=== PATIENT | male | born 1975 | race Hispanic/Latino ===

== ENCOUNTER 2024-06-27 19:35 | Emergency (ER) | payer OTHER ==
--- OUTSIDE RECORDS SUMMARY | 2024-06-27 19:39 | XMS REPORT | Continuity of Care Document ---
Author Name Unknown Address [address] [facility] [address] [place] [address] [facility] Address [address] [facility] [place] [address] Care Team Providers Care Placer Miner Name Role Phone JONATHON MARIA Attending Clinician Unavailable JAYESH DORSEY Attending Clinician Unavailable Lab, Adc Fam Pob I Attending Clinician Unavailab Jayesh Castro Attending Clinician [phone] Doctor Unassigned, Conception Attending Clinician U navailable Payers Payer Name Policy Type Policy Number Effective Date Expirati on Date Source [employer] PPO II [id number] 2020 00:00:00 [facility] - OUT OF STATE [id number] 2018 00:00:00 Allergies, Adverse Reactions, Alerts Allergy Name Allergy Type Status Severity Reaction(s) Onset Date Inactive Date Treating Clinician Comments Source NO KNOWN ALLERGIE S Drug Class Active [facility] Social History Social Habit Start Date Stop Date Quantity Comments Source Sex Assigned At [facility] Smoking Status Start Date Stop Date Source Unknown if ever smoked [facility] Encounters Start Date/Time End Date/Time Encounter Type Admission Type Attending Clinicians Care Facility Care Department Encounter ID Source 2020-05-23 07:50:00 2020-05-23 07:50:00 Outpatient JONATHON MARTINEZ [facility] [id number] [facility] 2020-05-02 07:50:00 2020-05-02 07:50:00 Outpatient JONATHON MARTINEZ [facility] [id number] [facility] 2019-09-28 17:20:00 2019-09-28 17:20:00 Outpatient R ANENE, [facility] [id number] [facility] 2019-09-28 11:21:43 2019-09-28 11:41:43 Laboratory Only Lab, Adc Fam Manju Dorsey [facility] [address] [id number] [facility] 2019-09-28 00:00:00 2019-09-28 00:00:00 Letter (Out) Doctor Unassigned, Conception [facility] [id number] [facility]
[2024-06-27] MEDS ORDERED: ONDANSETRON 4 MG/2 ML VIAL ONE (22:02)
[2024-06-27] MEDS ORDERED: NA CHLORIDE 0.9% 1,000 ML ONE (22:03)
[2024-06-27] MEDS ORDERED: MORPHINE 4 MG/ML SYR ONE (22:03)
[2024-06-27 22:04] LABS: Absolute Basophils 0.1 K/uL (0-0.5); Absolute Eosinophils 0.1 K/uL (0-0.5); Absolute Lymphocytes (CBC) 1.4 K/uL (0.7-4.9); Absolute Monocytes 0.9 K/uL (0.1-1.3); Absolute Neutrophil 9.1 K/uL (1.8-8.0); Basophils % 0.5 % (0-1.3); Eosinophils % 0.9 % (0-4.4); Hematocrit 43.6 % (39.6-49.0); Hemoglobin 14.7 g/dL (13.6-17.9); Lymphocytes % 12.3 % (15.3-44.8); MCH 30.8 pg (27.0-35.0); MCHC 33.8 g/dL (32.0-36.0); MCV 91.2 fL (80-100); MPV 9.9 fL (7.6-11.3); Neutrophils % 78.3 % (41.7-73.7); Platelets 192 thou/uL (152-406); RBC Red Blood Cell Count 4.78 M/uL (4.33-5.43); Red Cell Distribution Width 12.9 % (12.1-15.2)
[2024-06-27 22:09] LABS: Specific Gravity 1.017 (1.005-1.030); Sqamous Epithelial <5 /HPF (None Seen); Urine Bacteria None Seen /HPF (<20); Urine Bilirubin NEGATIVE (Negative); Urine Blood 2+ (Negative); Urine Clarity Clear (Clear); Urine Color Light-Yellow (Yellow); Urine Crystals Unidentified Few /HPF (None Seen); Urine Culture Reflex Order NOT NEEDED; Urine Glucose NEGATIVE (Negative); Urine Ketones NEGATIVE (Negative); Urine Microscopic Reflex YN ORDER UMIC; Urine Mucus Slight /HPF (None Seen); Urine Nitrite NEGATIVE (Negative); Urine Protein NEGATIVE (Negative); Urine Urobilinogen Normal (Normal); Urine WBC <5 /HPF (<5); Urine pH 5.5 (5.0-7.0)
[2024-06-27 22:21] LABS: Albumin 3.9 g/dL (3.4-5.0); Albumin/Globulin Ratio 1.1 (1.1-1.8); Anion Gap 6.9 mEq/L (5.0-15.0); Bilirubin Total 0.6 mg/dL (0.2-1.0); Globulin 3.4 g/dL (2.3-3.5); Potassium 3.9 mEq/L (3.5-5.1); Protein, Total 7.3 g/dL (6.4-8.2)
--- NOTE | 2024-06-27 23:45 | RAD REPORT ---
EXAM: CT Abdomen and Pelvis Without and With Intravenous Contrast CLINICAL HISTORY: The patient is 49 years old and is Male; right flank pain TECHNIQUE: Axial computed tomography images of the abdomen and pelvis without and with intravenous contrast. Sagittal and coronal reformatted images were created and reviewed. This CT exam was performed using one or more of the following dose reduction techniques: automated exposure control, adjustmen t of the mA and/or kV according to patient size, and/or use of iterative reconstruction technique. COMPARISON: No relevant prior studies available. FINDINGS: LUNG BASES: Unremarkable. No mass. No consolidation. ABDOMEN: LIVER: Unremarkable. No mass. GALLBLADDER AND BILE DUCTS: The gallbladder is contracted. No calcified gallstones are seen. PANCREAS: Unremarkable. No mass. No ductal dilation. SPLEEN: Unremarkable. ADRENALS: Unremarkable. No mass. KIDNEYS AND URETERS: Edematous right kidney with mild right hydronephrosis and proximal hydrouret er is present secondary to a 0.5 cm proximal right ureteral calculus. Right perinephric stranding is noted. The left kidney is normal without hydronephrosis or hydroureter. STOMACH AND BOWEL: The stomach is distended with food contents. The small bowel is normal in albert tata. A moderate amount stool is present throughout the colon. There is no mucosal thickening or evidence of obstruction. PELVIS: APPENDIX: The appendix is normal in caliber without surrounding inflammation. BLADDER: The bladder is well distended. No stones. REPRODUCTIVE: Unremarkable as visualized. ABDOMEN and PELVIS: INTRAPERITONEAL SPACE: Unremarkable. No free air. No significant fluid collection. BONES/JOINTS: No acute fracture. SOFT TISSUES: The soft tissues are normal. VASCULATURE: Unremarkable. No abdominal aortic aneurysm. LYMPH NODES: Unremarkable. No enlarged lymph nodes. IMPRESSION: Mild right hydroureteronephrosis with edematous right kidney secondary to a proximal right ureteral calculus. Electronically signed by: Kylee Bartholomew MD 06/27/2024 11:33 PM CDT RP Due to temporary technical issues with the [employer] reporting system, reports are being vane d by the in-house radiologist without review as a courtesy to ensure prompt reporting the interpreting radiologist is fully responsible for the content of the report. Transcribed Date/Time: 06/27/2024 11:44 PM
[2024-06-27] MEDS ORDERED: KETOROLAC 30 MG/ML INJ ONE (23:52)
[2024-06-27] MEDS ORDERED: MAGNESIUM SULFATE 1 gm IVPB 1 GM/100 ML BAG IV ONE (23:52)
[2024-06-27] MEDS ORDERED: TAMSULOSIN 0.4 MG SR CAP ONE (23:52)
--- NOTE | 2024-06-28 00:36 | EDPHYS ---
Physician Documentation [facility] Name: Santosh Bowman Age: 49 yrs Sex: Male : 1975 Arrival Date: 06/27/2024 Time: 19:35 Bed 16 Private MD: ED Physician Mina Vivas HPI: 06/27 20:00 This 49 yrs old Male presents to ER via Ambulatory with complaints of Flank cp Pain, Low Back Pain, Chills. 20:00 The patient complains of pain in the right flank. The pain radiates to the right mid cp back and right groin. Onset: The symptoms/episode began/occurred today. 20:00 Associated signs and symptoms: Pertinent positives: nausea, Pertinent negatives: cp diarrhea, dysuria, fever, hematuria, pain radiating to the lower extremities, vomiting. Severity of pain: in the emergency department the pain is unchanged despite home interventions. Significant other translates and reports pain started suddenly today. Historical: - Allergies: 19:59 No Known Allergies; br2 - Immunization history:: Adult Immunizations up to date. - Infectious Disease History:: Denies. - Social history:: Smoking status: Patient denies any tobacco usage or history of. Patient uses alcohol, but reports only rare drinking. Patient/guardian denies using street drugs. ROS: 20:05 Constitutional: Negative for body aches, chills, fever, poor PO intake, cp 20:05 Eyes: Negative for injury, pain, redness, and discharge, cp 20:05 ENT: Negative for drainage from ear(s), ear pain, sore throat, difficulty swallowing, difficulty handling secretions, 20:05 Cardiovascular: Negative for chest pain, edema, palpitations, 20:05 Respiratory: Negative for cough, shortness of breath, wheezing, 20:05 Abdomen/GI: Positive for abdominal pain, nausea, Negative for vomiting, diarrhea, constipation, 20:05 Back: Positive for flank pain, on the right, right mid back pain, 20:05 : Positive for radiating pain to right groin and right testicle, 20:05 Neuro: Negative for altered mental status, dizziness, headache, weakness, 20:05 All other systems are negative, Exam: 20:10 Constitutional: The patient appears in no acute distress, alert, awake, cp non-diaphoretic, non-toxic, well developed, well nourished, uncomfortable, 20:10 Head/Face: Normocephalic, atraumatic. cp 20:10 Eyes: Periorbital structures: appear normal, Conjunctiva: normal, no exudate, no injection, Sclera: no appreciated abnormality, Lids and lashes: appear normal, bilaterally, 20:10 ENT: External ear(s): are unremarkable, Nose: is normal, Mouth: Lips: moist, Oral mucosa: moist, Posterior pharynx: Airway: no evidence of obstruction, patent, 20:10 Chest/axilla: Inspection: normal, 20:10 Cardiovascular: Rate: normal, Rhythm: regular, Edema: is not appreciated, JVD: is not appreciated, 20:10 Respiratory: the patient does not display signs of respiratory distress, Respirations: normal, no use of accessory muscles, no retractions, labored breathing, is not present, Breath sounds: are clear throughout, no decreased breath sounds, 20:10 Abdomen/GI: Inspection: abdomen appears normal, Bowel sounds: active, all quadrants, Palpation: soft, in all quadrants, mild abdominal tenderness, in the anterior aspect of right lateral abdomen and posterior aspect of right lateral abdomen, moderate abdominal tenderness, in the right lower quadrant, rebound tenderness, is not appreciated, involuntary guarding, is not appreciated, 20:10 Back: pain, that is moderate, of the right mid back, ROM is normal, 20:10 Neuro: Orientation: to person, place \T\ time. Mentation: is normal, Motor: moves all fours, strength is normal, Sensation: is normal, Gait: is steady, at a normal pace, without difficulty, Vital Signs: 19:53 BP 130 / 69; Pulse 65; Resp 18; Temp 97.3; Pulse Ox 100% ; Weight 86.18 kg; Height 5 br2 ft. 9 in. ; Pain 10/10; 23:32 BP 141 / 76; Pulse 82; Resp 18; Pulse Ox 100% ; cp4 06/28 01:10 BP 122 / 74; Pulse 54; Resp 18; Pulse Ox 100% ; cp4 06/27 19:53 Body Mass Index 28.06 (86.18 kg, 175.26 cm) br2 06/27 19:53 Pain Scale: Adult br2 MDM: 00:35 Data reviewed: vital signs, nurses notes, lab test result(s), radiologic studies, CT cp scan, and as a result, I will discharge patient. 00:35 Differential diagnosis: nephrolithiasis, pyelonephritis, UTI, testicular torsion, cp ruptured AAA, dissecting AAA, colitis, appendicitis. Consideration of Admission/Observation Escalation of care including admission/observation considered. I considered the following discharge prescriptions or medication management in the emergency department Medications were administered in the Emergency Department. See MAR. Counseling: I had a detailed discussion with the patient and/or guardian regarding the historical points, exam findings, and any diagnostic results supporting the discharge/admit diagnosis, lab results, radiology results, the need for outpatient follow up, a urologist, to return to the emergency department if symptoms worsen or persist or if there are any questions or concerns that arise at home. Response to treatment: the patient's symptoms have markedly improved after treatment, pain and nausea markedly improved, and as a result, I will discharge patient. 00:36 Medical Screening Exam initiated cp 06/27 19:57 Order name: CBC with Diff; Complete Time: 22:37 cp 06/27 22:37 Interpretation: Normal except: WBC 11.60; CHIVO% 78.3; LYM% 12.3; NEUT A 9.1. cp 06/27 19:57 Order name: CMP; Complete Time: 22:37 cp 06/27 22:37 Interpretation: Normal except: GLUC 126; BUN 21; GFR 85. cp 06/27 19:57 Order name: Lipase; Complete Time: 22:37 cp 06/27 19:57 Order name: Urinalysis w/ reflexes; Complete Time: 22:37 cp 06/27 19:57 Order name: CT Abd/Pelvis- W/WO Contrast cp 06/27 19:57 Order name: IV Saline Lock; Complete Time: 21:55 cp 06/27 19:57 Order name: Labs collected and sent; Complete Time: 21:55 cp 06/28 00:13 Order name: Urine Strainer; Complete Time: 00:16 cp Administered Medications: 06/27 22:06 Drug: NS 0.9% IV 1000 ml IV at 1 bolus Per protocol; to be given as a bolus over 60 cp4 minutes Route: IV; Rate: 1 bolus; Site: left antecubital; 23:58 Follow up: Response: No adverse reaction; IV Status: Completed infusion cp4 23:50 Not Given (Patient Refused): ondansetron 4 mg IVP once; over 2 minutes cp4 23:51 Not Given (Patient Refused): morphineor iv 4 mg IVP once over 4 mins cp4 23:58 Drug: Magnesium Sulfate IVPB 1 grams IVPB once over 1 hrs Route: IVPB; Infused Over: 1 cp4 hrs; Site: left antecubital; 06/28 01:09 Follow up: Response: No adverse reaction; IV Status: Completed infusion cp4 06/27 23:58 Drug: Flomax PO 0.4 mg PO once Route: PO; cp4 06/28 00:42 Follow up: Response: No adverse reaction cp4 06/27 23:58 Drug: Ketorolac IVP 15 mg IVP once Route: IVP; Site: left antecubital; cp4 06/28 00:42 Follow up: Response: No adverse reaction cp4 01:09 Drug: Hydrocodone-Acetaminophen PO (7.5 mg-325 mg) 1 tabs PO once; RASS on ADMIN: cp4 Combtv4, Very Agttd3, Agttd2, Rstlss1, AlertClm0, Drwsy-1, Lt Sdtn-2, Mod Sdtn-3, Dp Sdtn-4, UnArsble-5 Route: PO; 01:09 Follow up: Response: No adverse reaction cp4 Disposition: 22:28 Co-signature as Attending Physician, Mina Vivas MD I agree with the assessment sp4 and plan of care. I reviewed the patient's care provided by the Advanced Practice Provider and agree with the diagnosis and treatment plan. Disposition Summary: 06/28/24 00:36 Discharge Ordered Notes: Location: Home cp Problem: new cp Symptoms: have improved cp Condition: Stable cp Diagnosis - Calculus of ureter - right cp Followup: cp - With: Chaz Haq MD - When: 2 - 3 days - Reason: Recheck today's complaints Discharge Instructions: - Discharge Summary Sheet cp - Kidney Stones cp - Renal Colic cp - Dietary Guidelines to Help Prevent Kidney Stones cp Forms: - Medication Reconciliation Form cp - Antibiotic Education cp - Prescription Opioid Use cp - Patient Portal Instructions cp - Leadership Thank You Letter cp Prescriptions: - Flomax 0.4 mg Oral capsule - take 1 capsule ORAL route daily As needed; 7 capsule; Refills: 0, Product cp Selection Permitted - Ibuprofen 800 mg Oral Tablet - take 1 tablet ORAL route every 8 hours As needed take with food; 30 tablet; cp Refills: 0, Product Selection Permitted - Zofran 4 mg Oral Tablet - take 1 tablet ORAL route every 12 hours As needed; 20 tablet; Refills: 0, cp Product Selection Permitted - Tylenol-Codeine #3 300mg-30mg Oral tablet - take 1 tablet ORAL route every 4 hours As needed; 16 tablet; Refills: 0, cp Product Selection Permitted Signatures: Dispatcher [employer] EDMS Brent Jorgensen, LAMONT PA Mina Dodson MD MD sp4 Kathleen Fox cp4 Kassidy De Luna RN RN br2
--- NOTE | 2024-06-28 00:36 | ER ---
Nurse's Notes [facility] Name: Santosh Bowman Age: 49 yrs Sex: Male : 1975 Arrival Date: 06/27/2024 Time: 19:35 Bed 16 Private MD: Diagnosis: Calculus of ureter-right Presentation: 06/27 19:53 Chief complaint: Patient states: RIGHT FLANK PAIN AND RADIATES TO RLQ AND RIGHT br2 TESTICAL , DENIES HEMATURIA OR KIDNEY STONES... Coronavirus screen: Client denies travel out of the [place] in the last 14 days. Ebola Screen: Patient denies exposure to infectious person. Initial Sepsis Screen: Does the patient meet any 2 criteria? No. Patient's initial sepsis screen is negative. Does the patient have a suspected source of infection? No. Patient's initial sepsis screen is negative. Risk Assessment: Do you want to hurt yourself or someone else? Patient reports no desire to harm self or others. Onset of symptoms was June 27, 2024 at 14:00. 19:53 Method Of Arrival: Ambulatory br2 19:53 Acuity: TREMAINE 3 br2 Triage Assessment: 19:59 General: Appears in no apparent distress. comfortable, Behavior is calm, cooperative. br2 Historical: - Allergies: 19:59 No Known Allergies; br2 - Immunization history:: Adult Immunizations up to date. - Infectious Disease History:: Denies. - Social history:: Smoking status: Patient denies any tobacco usage or history of. Patient uses alcohol, but reports only rare drinking. Patient/guardian denies using street drugs. Screenin:58 [facility] ED Fall Risk Assessment (Adult) History of falling in the last 3 months, cp4 including since admission No falls in past 3 months (0 pts) Confusion or Disorientation No (0 pts) Intoxicated or Sedated No (0 pts) Impaired Gait No (0 pts) Mobility Assist Device Used No (0 pt) Altered Elimination No (0 pt) Score/Fall Risk Level 0 - 2 = Low Risk Oriented to surroundings, Maintained a safe environment, Assessed \T\ reinforced patient's understanding of fall precautions, Hourly rounding (assess needs \T\ fall precautionary measures) done. Abuse screen: Denies threats or abuse. Denies injuries from another. Nutritional screening: No deficits noted. Tuberculosis screening: No symptoms or risk factors identified. Assessment: 21:58 General: Appears in no apparent distress. uncomfortable, Behavior is calm, cooperative, cp4 appropriate for age. Pain: Complains of pain in right flank Pain radiates to pelvis Pain currently is 10 out of 10 on a pain scale. Neuro: Level of Consciousness is awake, alert, obeys commands, Oriented to person, place, time, situation. Cardiovascular: Rhythm is regular. Cardiovascular: Patient's skin is warm and dry. Respiratory: Airway is patent Respiratory effort is even, unlabored. GI: No signs and/or symptoms were reported involving the gastrointestinal system. : Reports pain in right flank(s). EENT: No signs and/or symptoms were reported regarding the EENT system. Derm: No signs and/or symptoms reported regarding the dermatologic system. Musculoskeletal: No signs and/or symptoms reported regarding the musculoskeletal system. 06/28 00:47 Reassessment: Dispo pending IV Magnesium infusion. cp4 Vital Signs: 06/27 19:53 BP 130 / 69; Pulse 65; Resp 18; Temp 97.3; Pulse Ox 100% ; Weight 86.18 kg; Height 5 br2 ft. 9 in. ; Pain 10/10; 23:32 BP 141 / 76; Pulse 82; Resp 18; Pulse Ox 100% ; cp4 06/28 01:10 BP 122 / 74; Pulse 54; Resp 18; Pulse Ox 100% ; cp4 06/27 19:53 Body Mass Index 28.06 (86.18 kg, 175.26 cm) br2 06/27 19:53 Pain Scale: Adult br2 ED Course: 06/27 19:40 Patient arrived in ED. im 19:41 Brent Jorgensen PA is PHCP. cp 19:41 Mina Vivas MD is Attending Physician. cp 19:59 Triage completed. br2 21:44 Kathleen Fox is Primary Nurse. cp4 21:55 No provider procedures requiring assistance completed. Initial lab(s) drawn, by sd, cp4 sent to lab. Urine collected: clean catch specimen, beatriz colored. Inserted saline lock: 20 gauge in left antecubital area, using aseptic technique. Blood collected. Flushed with 10 mL NS. 21:58 Bed in low position. Call light in reach. Side rails up X 1. cp4 22:43 CT Abd/Pelvis- W/WO Contrast In Process Unspecified. EDMS 06/28 00:36 Chaz Haq MD is Referral Physician. cp 01:10 intact, bleeding controlled, No redness/swelling at site. Pressure dressing applied. cp4 01:10 Provided Education on: kidney stones. cp4 01:11 Arm band placed on right wrist. Patient placed in waiting room. cp4 Administered Medications: 06/27 22:06 Drug: NS 0.9% IV 1000 ml IV at 1 bolus Per protocol; to be given as a bolus over 60 cp4 minutes Route: IV; Rate: 1 bolus; Site: left antecubital; 23:58 Follow up: Response: No adverse reaction; IV Status: Completed infusion cp4 23:50 Not Given (Patient Refused): ondansetron 4 mg IVP once; over 2 minutes cp4 23:51 Not Given (Patient Refused): morphineor iv 4 mg IVP once over 4 mins cp4 23:58 Drug: Magnesium Sulfate IVPB 1 grams IVPB once over 1 hrs Route: IVPB; Infused Over: 1 cp4 hrs; Site: left antecubital; 06/28 01:09 Follow up: Response: No adverse reaction; IV Status: Completed infusion cp4 06/27 23:58 Drug: Flomax PO 0.4 mg PO once Route: PO; cp4 06/28 00:42 Follow up: Response: No adverse reaction cp4 06/27 23:58 Drug: Ketorolac IVP 15 mg IVP once Route: IVP; Site: left antecubital; cp4 06/28 00:42 Follow up: Response: No adverse reaction cp4 01:09 Drug: Hydrocodone-Acetaminophen PO (7.5 mg-325 mg) 1 tabs PO once; RASS on ADMIN: cp4 Combtv4, Very Agttd3, Agttd2, Rstlss1, AlertClm0, Drwsy-1, Lt Sdtn-2, Mod Sdtn-3, Dp Sdtn-4, UnArsble-5 Route: PO; 01:09 Follow up: Response: No adverse reaction cp4 Medication: 06/27 21:58 VIS not applicable for this client. cp4 Outcome: 06/28 00:36 Discharge ordered by . cp 01:10 Discharged to home ambulatory, cp4 01:10 Condition: stable 01:10 Discharge instructions given to patient, family, Instructed on discharge instructions, follow up and referral plans. medication usage, Demonstrated understanding of instructions, follow-up care, medications, Prescriptions given X 4, 01:11 Patient left the ED. cp4 Signatures: Dispatcher [employer] EDMS Brent Jorgensen PA PA cp Mendoza, Itzel im Potter, Christina cp4 Kassidy De Luna RN RN br2
[2024-06-28] MEDS ORDERED: HYDROCODONE/APAP 7.5/325 MG TAB ONE (01:05)
[2024-06-28 01:16] VITALS: TEMP 97.3; O2SAT 100
[2024-06-28 01:19] VITALS: BP 122/74
== END 2024-06-28 01:11 | disposition home or self-care (01) ==
LOC: ER 19:35
DX: N20.1 Calculus of ureter (principal)
CPT/HCPCS: 96365; 96361; 85025; 81001; 36415; 83690; 80053; 74178; 96375; 99284; Q9967; J3475; J7030; J2405